=== PATIENT | male | born 2000 ===

== ENCOUNTER 2022-05-17 22:14 | Emergency (ER) | payer MEDICAID ==
[2022-05-18 13:06] LABS: Basophils % (Auto) 0.6 % (0.0-1.8); Eosinophils # (Auto) 0.2 K/mm3 (0.0-0.4); Eosinophils % (Auto) 2.6 % (0.0-4.3); Hematocrit 40.7 % (35.5-45.6); Hemoglobin 13.8 gm/dl (11.8-15.2); Lymphocytes # (Auto) 2.6 K/mm3 (1.2-5.4); Lymphocytes % (Auto) 40.8 % (13.4-35.0); Mean Corpuscular HGB Conc 34 % (32-34); Mean Corpuscular Volume 95 fl (84-94); Monocytes # (Auto) 0.7 K/mm3 (0.0-0.8); Monocytes % (Auto) 11.1 % (0.0-7.3); Platelet Count 158 K/mm3 (140-440); Red Blood Count 4.29 M/mm3 (3.65-5.03); Red Cell Distribution Width 14.4 % (13.2-15.2)
[2022-05-18 13:14] LABS: Benzodiazepines Screen,Urine Negative; Cocaine Screen,Urine Negative; Methadone Screen,Urine Negative; Opiate Screen,Urine Negative
[2022-05-18 13:22] LABS: Blood Urea Nitrogen 5 mg/dL (9-20); Calcium 9.7 mg/dL (8.4-10.2); Hemolysis Index 4
[2022-05-18 13:28] LABS: BUN/Creatinine Ratio 7
[2022-05-18 13:30] LABS: Amphetamine Screen,Urine Positive; Cannabinoid Screen,Urine Positive
--- NOTE | 2022-05-18 13:31 | Emergency Department Report ---
<VINICIUS BRUMFIELD - Last Filed: 05/18/22 16:30> ED Psych HPI - General Chief Complaint: Psych Stated Complaint: EMMANUEL SWJUDD THROUGH HEAD AND NO TONGUE Time Seen by Provider: 05/18/22 12:22 - Related Data Allergies Allergy/AdvReac Type Severity Reaction Status Date / Time No Known Allergies Allergy Unverified 05/17/22 22:56 ED Course - Reevaluation(s) Reevaluation #1: 05/18/22 16:30 This is a 21-year-old male who presented with delusions, who is now been placed on a 1013 for acute psychosis. Patient has been medically cleared for psychiatric disposition. ED Medical Decision Making - Lab Data Result diagrams: 05/18/22 12:29 05/18/22 12:29 ED Disposition Clinical Impression: Delusional disorder, Psychosis, Medical clearance for psychiatric admission, Amphetamine abuse Disposition: 30 STILL A PATIENT Is pt being admited?: No Condition: Stable <GWYN CHU - Last Filed: 05/19/22 07:58> ED Psych HPI - General Source: patient, EMS Mode of arrival: Ambulatory Limitations: No Limitations - History of Present Illness Initial Comments: 21 yo old male with hx of schizophrenia presents to the hospital with psychosis. Pt is not currently taking any psychiatric medications. He does have a place to live. He denies suicidal homicidal ideation. Patient states he has a noticeable sword in his head and that he has a tongue similar to her female c aused by black magic. He denies any pain. ED Review of Systems ROS: Stated complaint: EMMANUEL MIRAMONTES THROUGH HEAD AND NO TONGUE Other details as noted in HPI Comment: All other systems reviewed and negative ED Past Medical Hx - Past Medical History Hx Psychiatric Treatment: Yes - Social History Smoking Status: Never Smoker ED Physical Exam - General Limitations: No Limitations - Other Other exam information: General: No acute distress Head: Atraumatic Eyes: normal appearance ENT: Moist mucous membranes Neck: Normal appearance, no midline tenderness Chest: Clear to auscultation bilaterally CV: Regular rate and rhythm Abdomen: Soft, normal bowel sounds, nontender, nondistended, no rebound or guarding Back: Normal inspection Extremity: Normal inspection, full range of motion Neuro: Alert O x 3, no facial asymmetry, speech clear, no gross motor sensory deficit Psych: Appropriate behavior, hallucinations plus delusions Skin: No rash ED Course Vital Signs 05/17/22 05/18/22 05/18/22 22:54 13:19 20:11 Temperature 97.8 F 98.6 F 98.4 F Pulse Rate 91 H 59 L 58 L Respiratory 16 14 16 Rate Blood Pressure 145/82 125/61 106/67 [Right] O2 Sat by Pulse 98 98 98 Oximetry 05/19/22 02:47 Temperature 98.0 F Pulse Rate 54 L Respiratory 16 Rate Blood Pressure 120/67 [Right] O2 Sat by Pulse 99 Oximetry ED Medical Decision Making - Lab Data Result diagrams: 05/18/22 12:29 05/18/22 12:29 Lab Results 05/18/22 05/18/22 05/18/22 Range/Units 12:29 12:29 12:29 WBC (4.5-11.0) K/mm3 RBC (3.65-5.03) M/mm3 Hgb (11.8-15.2) gm/dl Hct (35.5-45.6) % MCV (84-94) fl MCH (28-32) pg MCHC (32-34) % RDW (13.2-15.2) % Plt Count (140-440) K/mm3 Lymph % (Auto) (13.4-35.0) % [place] % (Auto) (0.0-7.3) % Eos % (Auto) (0.0-4.3) % Baso % (Auto) (0.0-1.8) % Lymph # (Auto) (1.2-5.4) K/mm3 [place] # (Auto) (0.0-0.8) K/mm3 Eos # (Auto) (0.0-0.4) K/mm3 Baso # (Auto) (0.0-0.1) K/mm3 Seg Neutrophils % (40.0-70.0) % Seg Neutrophils # (1.8-7.7) K/mm3 Sodium 139 (137-145) mmol/L Potassium 4.0 (3.6-5.0) mmol/L Chloride 102.6 (98-107) mmol/L Carbon Dioxide 26 (22-30) mmol/L Anion Gap 14 mmol/L BUN 5 L (9-20) mg/dL Creatinine 0.7 L (0.8-1.3) mg/dL Estimated GFR > 60 ml/min BUN/Creatinine Ratio 7 % Glucose 82 (75-100) mg/dL Calcium 9.7 (8.4-10.2) mg/dL Urine Color (Yellow) Urine Turbidity (Clear) Urine pH (5.0-7.0) Ur Specific [place] (1.003-1.030) Urine Protein (Negative) mg/dL Urine Glucose (UA) (Negative) mg/dL Urine Ketones (Negative) mg/dL Urine Blood (Negative) Urine Nitrite (Negative) Ur Reducing Substances Urine Bilirubin (Negative) Urine Ictotest (Negative) Urine Urobilinogen (<2.0) mg/dL Ur Leukocyte Esterase (Negative) Urine WBC (Auto) (0.0-6.0) /HPF Urine RBC (Auto) (0.0-6.0) /HPF U Epithel Cells (Auto) (0-13.0) /HPF Urine Mucus /HPF Salicylates < 0.3 L (2.8-20.0) mg/dL Urine Opiates Screen Urine Methadone Screen Acetaminophen 5.0 L (10.0-30.0) ug/mL Ur Barbiturates Screen Ur Phencyclidine Scrn Ur Amphetamines Screen U Benzodiazepines Scrn Urine Cocaine Screen U Marijuana (THC) Screen Drugs of Abuse Note Plasma/Serum Alcohol (0-0.07) % 05/18/22 05/18/22 05/18/22 Range/Units 12:29 12:29 Unknown WBC 6.5 (4.5-11.0) K/mm3 RBC 4.29 (3.65-5.03) M/mm3 Hgb 13.8 (11.8-15.2) gm/dl Hct 40.7 (35.5-45.6) % MCV 95 H (84-94) fl MCH 32 (28-32) pg MCHC 34 (32-34) % RDW 14.4 (13.2-15.2) % Plt Count 158 (140-440) K/mm3 Lymph % (Auto) 40.8 H (13.4-35.0) % [place] % (Auto) 11.1 H (0.0-7.3) % Eos % (Auto) 2.6 (0.0-4.3) % Baso % (Auto) 0.6 (0.0-1.8) % Lymph # (Auto) 2.6 (1.2-5.4) K/mm3 [place] # (Auto) 0.7 (0.0-0.8) K/mm3 Eos # (Auto) 0.2 (0.0-0.4) K/mm3 Baso # (Auto) 0.0 (0.0-0.1) K/mm3 Seg Neutrophils % 44.9 (40.0-70.0) % Seg Neutrophils # 2.9 (1.8-7.7) K/mm3 Sodium (137-145) mmol/L Potassium (3.6-5.0) mmol/L Chloride (98-107) mmol/L Carbon Dioxide (22-30) mmol/L Anion Gap mmol/L BUN (9-20) mg/dL Creatinine (0.8-1.3) mg/dL Estimated GFR ml/min BUN/Creatinine Ratio % Glucose (75-100) mg/dL Calcium (8.4-10.2) mg/dL Urine Color Yellow (Yellow) Urine Turbidity Clear (Clear) Urine pH 6.0 (5.0-7.0) Ur Specific [place] 1.020 (1.003-1.030) Urine Protein <15 mg/dl (Negative) mg/dL Urine Glucose (UA) Negative (Negative) mg/dL Urine Ketones 1+ (Negative) mg/dL Urine Blood Negative (Negative) Urine Nitrite Negative (Negative) Ur Reducing Substances Not Reportable Urine Bilirubin 1+ (Negative) Urine Ictotest Negative (Negative) Urine Urobilinogen 0.0 (<2.0) mg/dL Ur Leukocyte Esterase Negative (Negative) Urine WBC (Auto) < 1.0 (0.0-6.0) /HPF Urine RBC (Auto) 1.0 (0.0-6.0) /HPF U Epithel Cells (Auto) 1.0 (0-13.0) /HPF Urine Mucus 1+ /HPF Salicylates (2.8-20.0) mg/dL Urine Opiates Screen Urine Methadone Screen Acetaminophen (10.0-30.0) ug/mL Ur Barbiturates Screen Ur Phencyclidine Scrn Ur Amphetamines Screen U Benzodiazepines Scrn Urine Cocaine Screen U Marijuana (THC) Screen Drugs of Abuse Note Plasma/Serum Alcohol < 0.01 (0-0.07) % 08/09/22 Range/Units Unknown WBC (4.5-11.0) K/mm3 RBC (3.65-5.03) M/mm3 Hgb (11.8-15.2) gm/dl Hct (35.5-45.6) % MCV (84-94) fl MCH (28-32) pg MCHC (32-34) % RDW (13.2-15.2) % Plt Count (140-440) K/mm3 Lymph % (Auto) (13.4-35.0) % [place] % (Auto) (0.0-7.3) % Eos % (Auto) (0.0-4.3) % Baso % (Auto) (0.0-1.8) % Lymph # (Auto) (1.2-5.4) K/mm3 [place] # (Auto) (0.0-0.8) K/mm3 Eos # (Auto) (0.0-0.4) K/mm3 Baso # (Auto) (0.0-0.1) K/mm3 Seg Neutrophils % (40.0-70.0) % Seg Neutrophils # (1.8-7.7) K/mm3 Sodium (137-145) mmol/L Potassium (3.6-5.0) mmol/L Chloride (98-107) mmol/L Carbon Dioxide (22-30) mmol/L Anion Gap mmol/L BUN (9-20) mg/dL Creatinine (0.8-1.3) mg/dL Estimated GFR ml/min BUN/Creatinine Ratio % Glucose (75-100) mg/dL Calcium (8.4-10.2) mg/dL Urine Color (Yellow) Urine Turbidity (Clear) Urine pH (5.0-7.0) Ur Specific [place] (1.003-1.030) Urine Protein (Negative) mg/dL Urine Glucose (UA) (Negative) mg/dL Urine Ketones (Negative) mg/dL Urine Blood (Negative) Urine Nitrite (Negative) Ur Reducing Substances Urine Bilirubin (Negative) Urine Ictotest (Negative) Urine Urobilinogen (<2.0) mg/dL Ur Leukocyte Esterase (Negative) Urine WBC (Auto) (0.0-6.0) /HPF Urine RBC (Auto) (0.0-6.0) /HPF U Epithel Cells (Auto) (0-13.0) /HPF Urine Mucus /HPF Salicylates (2.8-20.0) mg/dL Urine Opiates Screen Negative Urine Methadone Screen Negative Acetaminophen (10.0-30.0) ug/mL Ur Barbiturates Screen Negative Ur Phencyclidine Scrn Negative Ur Amphetamines Screen Positive U Benzodiazepines Scrn Negative Urine Cocaine Screen Negative U Marijuana (THC) Screen Positive Drugs of Abuse Note Disclamer Plasma/Serum Alcohol (0-0.07) % - Medical Decision Making I did request eval for evaluation. Patient is experiencing psychosis and delusions with underlying psychiatric disorder, med noncompliance, and amphetamine abuse. As per medical record review 1013 was recommended due to psychosis. Patient is medically clear Critical care attestation.: If time is entered above; I have spent that time in minutes in the direct care of this critically ill patient, excluding procedure time. ED Disposition Time of Disposition: 07:58
[2022-05-18 15:09] LABS: Mucus,Urine 1+ /HPF; WBC,Urine < 1.0 /HPF (0.0-6.0)
[2022-05-18 15:32] LABS: Bilirubin,Urine 1+ (Negative); Blood,Urine Negative (Negative); Color,Urine Yellow (Yellow)
[2022-05-18 15:33] LABS: Ictotest,Urine Negative (Negative); Protein,Urine <15 mg/dL mg/dL (Negative)
--- NOTE | 2022-05-19 11:13 | Consultation ---
History of Present Illness - Reason for Consult Consult date: 05/19/22 Reason for consult: Psychosis - History of Present Psychiatric Illness The patient was seen today. He presents with disorganized thinking " Visible sword and black magic, they asked these questions." The patient is unable to engage in assessment at this time. Diagnoses: schizophrenia PAST MEDICAL HISTORY: Family Psychiatric History: None reported or documented SOCIAL HISTORY REVIEW OF SYSTEMS MENTAL STATUS EXAMINATION Assessment and Plan Schizophrenia Disorder Treatment Plan 1013 Continue home Meds Zyprexa 5mg po BID Trazodone 50mg po QHS Risks, benefits and alternatives of medications discussed with the patient, questions answered and consent obtained from patient. PSYCHOTHERAPY: Supportive psychotherapy provided MEDICAL: Per primary team DELIRIUM PRECAUTIONS: Please re-orient patient frequently, keep lights on during the day, and minimize benzodiazepines and opiates as these medications could worsen patient's confusion. 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 Will follow. Thank you for the consult. Please contact with any questions and/or concerns. Case staffed with Dr. Rosenthal Medications and Allergies Medications and Allergies Allergies Allergy/AdvReac Type Severity Reaction Status Date / Time No Known Allergies Allergy Unverified 05/17/22 22:56 Mental Status Exam - Vital signs Last Vital Signs Temp 97.9 F 05/19/22 08:46 Pulse 55 L 05/19/22 08:46 Resp 18 05/19/22 08:46 BP 118/72 05/19/22 08:46 Pulse Ox 99 05/19/22 08:46 Results Result Diagrams: 05/18/22 12:29 05/18/22 12:29 Abnormal lab results 05/18/22 05/18/22 05/18/22 Range/Units 12:29 12:29 12:29 MCV (84-94) fl Lymph % (Auto) (13.4-35.0) % [place] % (Auto) (0.0-7.3) % BUN 5 L (9-20) mg/dL Creatinine 0.7 L (0.8-1.3) mg/dL Salicylates < 0.3 L (2.8-20.0) mg/dL Acetaminophen 5.0 L (10.0-30.0) ug/mL SARS-CoV-2 (PCR) (Negative) 05/18/22 05/19/22 Range/Units 12:29 10:02 MCV 95 H (84-94) fl Lymph % (Auto) 40.8 H (13.4-35.0) % [place] % (Auto) 11.1 H (0.0-7.3) % BUN (9-20) mg/dL Creatinine (0.8-1.3) mg/dL Salicylates (2.8-20.0) mg/dL Acetaminophen (10.0-30.0) ug/mL SARS-CoV-2 (PCR) Positive A (Negative) All other labs normal.
--- NOTE | 2022-05-20 09:54 | Progress Note ---
Subjective - Reason for Consult Consult date: 05/20/22 Reason for consult: mental health evaluation - Chief Complaint Chief complaint: The patient was seen this morning. He continues to present with disorganized thinking talking about " black majic." REVIEW OF SYSTEMS MENTAL STATUS EXAMINATION Assessment and Plan Schizophrenia Disorder Treatment Plan 1013 Continue home Meds Zyprexa 5mg po BID Trazodone 50mg po QHS Risks, benefits and alternatives of medications discussed with the patient, questions answered and consent obtained from patient. PSYCHOTHERAPY: Supportive psychotherapy provided MEDICAL: Per primary team DELIRIUM PRECAUTIONS: Please re-orient patient frequently, keep lights on during the day, and minimize benzodiazepines and opiates as these medications could worsen patient's confusion. 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 Will follow. Thank you for the consult. Please contact with any questions and/or concerns. Case staffed with Dr. Rosenthal Medications and Allergies Mental Status Exam - Vital signs Last Vital Signs Temp 98.6 F 05/20/22 09:18 Pulse 80 05/20/22 09:18 Resp 18 05/20/22 09:18 BP 111/50 05/20/22 09:18 Pulse Ox 100 05/20/22 09:18
--- NOTE | 2022-05-20 14:29 | Emergency Department Report ---
Blank Doc - Documentation Documentation: This is a 21-year-old male who is on a 1013 for acute psychosis with hallucina tions that he has a sword and has had. Patient has been agitated, recently, but has Geodon ordered as needed. Patient is also COVID-19 positive. Patient is awaiting negative COVID testing and to be accepted and transferred to inpatient psychiatric facility.
--- NOTE | 2022-05-21 12:05 | Progress Note ---
Subjective - Reason for Consult Consult date: 05/21/22 Reason for consult: psychosis - Chief Complaint Chief complaint: The patient was seen this morning. He is acutely psychotic. His thoughts are disorganized. The patient says he has an "reversible sword that's in my body." He then says "I have black magic on my tongue." The patient verbalizes hearing voices but could not tell me what they were saying. He says "it's just black magic." He denies SI/HI. REVIEW OF SYSTEMS MENTAL STATUS EXAMINATION Assessment and Plan Schizophrenia Treatment Plan 1013 Zyprexa 7.5mg po daily Trazodone 50mg po QHS Risks, benefits and alternatives of medications discussed with the patient, questions answered and consent obtained from patient. PSYCHOTHERAPY: Supportive psychotherapy provided MEDICAL: Per primary team DELIRIUM PRECAUTIONS: Please re-orient patient frequently, keep lights on during the day, and minimize benzodiazepines and opiates as these medications could worsen patient's confusion. 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 Will follow. Thank you for the consult. Please contact with any questions and/or concerns. Case staffed with Dr. Rosenthal Mental Status Exam - Vital signs Last Vital Signs Temp 98.7 F 05/21/22 08:49 Pulse 63 05/21/22 08:49 Resp 18 05/21/22 08:49 BP 106/54 05/21/22 08:49 Pulse Ox 96 05/21/22 09:26
[2022-05-21] MEDS ORDERED: LORazepam 2 MG/ML VIAL IM PRN (17:57)
[2022-05-21] MEDS ORDERED: HALOPERIDOL LACTATE 5 MG/1 ML INJ IM PRN (17:57)
--- NOTE | 2022-05-21 17:59 | Event Note ---
Date: 05/21/22 The patient was evaluated in the emergency department for symptoms described in the history of present illness. He/she was evaluated in the context of the global COVID-19 pandemic, which necessitated consideration that the patient might be at risk for infection with the virus that causes COVID-19. Institutional protocols and algorithms that pertain to the evaluation of patients at risk for COVID-19 are in a state of rapid change based on information released by regulatory bodies including the CDC and federal and state organizations. These policies and algorithms were followed during the patient's care in the emergency department. Please note that these policies, procedures and recommendations changed on a rapid basis. Laboratory studies, vital signs, nursing documentation, ER documentation, and psychiatric documentation are reviewed and appreciated. Nursing team reports no acute events this morning or concerns. The patient is awake and ambulating and is not in any acute distress. He is requesting a nicotine patch He is not hypoxic. Positive COVID-19 swab is not a medical contraindication to psychiatric placement and disposition The patient was deemed medically suitable for psychiatric disposition and placement during his initial ER evaluation. The patient continues to remain medically suitable for psychiatric placement and disposition. He is currently pending psychiatric placement. Vital Signs 05/17/22 05/18/22 05/18/22 22:54 13:19 20:11 Temperature 97.8 F 98.6 F 98.4 F Pulse Rate 91 H 59 L 58 L Respiratory 16 14 16 Rate Blood Pressure 145/82 125/61 106/67 [Right] O2 Sat by Pulse 98 98 98 Oximetry 05/19/22 05/19/22 05/19/22 02:47 08:46 19:36 Temperature 98.0 F 97.9 F 97.8 F Pulse Rate 54 L 55 L 59 L Respiratory 16 18 18 Rate Blood Pressure 120/67 118/72 120/79 [Right] O2 Sat by Pulse 99 99 99 Oximetry 05/20/22 05/20/22 05/20/22 08:57 09:18 17:28 Temperature 98.6 F 99 F Pulse Rate 80 50 L Respiratory 18 18 Rate Blood Pressure 111/50 106/54 [Right] O2 Sat by Pulse 99 100 97 Oximetry 05/20/22 05/21/22 05/21/22 22:17 08:49 09:26 Temperature 98.7 F Pulse Rate 63 Respiratory 18 Rate Blood Pressure 106/54 [Right] O2 Sat by Pulse 100 96 96 Oximetry 05/21/22 17:24 Temperature 98.6 F Pulse Rate 73 Respiratory 18 Rate Blood Pressure 123/76 [Right] O2 Sat by Pulse 95 Oximetry
[2022-05-22] MEDS: NICOTINE 14 MG/24 HR PATCH TD SCH ×2 (00:10→12:07)
[2022-05-22] MEDS: traZODone 50 MG TAB PO SCH ×2 (00:10→22:45)
--- NOTE | 2022-05-22 09:37 | Progress Note ---
Subjective - Reason for Consult Consult date: 05/22/22 Reason for consult: psychosis - Chief Complaint Chief complaint: The patient was seen this morning. He is still delusional and psychotic. He is not making a lot of sense. He is asking me if he still has a female tongue. He sticks his tongue out for me to look. The patient says he has black magic on his tongue. He denies hearing voices at the moment, but says he was hearing them before. The patient says "I hear them when I have the sword in my head." He denies SI/HI. REVIEW OF SYSTEMS Constitutional: Negative for weight loss ENT: Negative for stridor Respiratory: Negative for cough or hemoptysis All other systems reviewed and are negative MENTAL STATUS EXAMINATION General Appearance and Behavior: Age appropriate, good hygiene, wearing dorian ropriate clothes. calm, cooperative Cooperation: Cooperative Psychomotor Behavior: Psychomotor normal Mood: ok Affect and affective range: congruent with stated mood Thought Process: illogical Thought Content: delusions, hallucination Speech: Normal tone and pace Suicidal Ideation: Denies Homicidal Ideation: Denies Hallucinations: Yes Delusions: Yes Impulse Control: Limited Insight and Judgment: poor insight and judgment Memory: Limited Attention: distracted Orientation: a/o Assessment and Plan Schizophrenia Treatment Plan 1013 Increase Zyprexa 10mg po daily Depakote DR 125mg po BID Trazodone 50mg po QHS Risks, benefits and alternatives of medications discussed with the patient, questions answered and consent obtained from patient. PSYCHOTHERAPY: Supportive psychotherapy provided MEDICAL: Per primary team DELIRIUM PRECAUTIONS: Please re-orient patient frequently, keep lights on during the day, and minimize benzodiazepines and opiates as these medications could worsen patient's confusion. 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 Will follow. Thank you for the consult. Please contact with any questions and/or concerns. Case staffed with Dr. Rosenthal Mental Status Exam - Vital signs Last Vital Signs Temp 98.0 F 05/21/22 21:20 Pulse 58 L 05/21/22 21:20 Resp 16 05/21/22 21:20 BP 103/60 05/21/22 21:20 Pulse Ox 100 05/21/22 21:20
[2022-05-22] MEDS: DIVALPROEX DR 125 MG TAB PO SCH ×2 (10:11→22:45)
--- NOTE | 2022-05-22 17:15 | Event Note ---
Date: 05/22/22 The patient was evaluated in the emergency department for symptoms described in the history of present illness. He/she was evaluated in the context of the global COVID-19 pandemic, which necessitated consideration that the patient might be at risk for infection with the virus that causes COVID-19. Institutional protocols and algorithms that pertain to the evaluation of patients at risk for COVID-19 are in a state of rapid change based on information released by regulatory bodies including the CDC and federal and state organizations. These policies and algorithms were followed during the patient's care in the emergency department. Please note that these policies, procedures and recommendations changed on a rapid basis. Laboratory studies, vital signs, nursing documentation, ER documentation, and psychiatric documentation are reviewed and appreciated. Nursing team reports no acute events this morning or concerns. The patient is awake and ambulating and does not appear to be in any acute distress. The patient was deemed medically suitable for psychiatric disposition and placement during his initial ER evaluation. The patient continues to remain medically suitable for psychiatric placement and disposition. He is currently pending psychiatric placement. Please note that in spite of having a positive COVID-19 test, the patient does not have a medical contraindication to psychiatric placement, consultation and disposition. Vital Signs 05/17/22 05/18/22 05/18/22 22:54 13:19 20:11 Temperature 97.8 F 98.6 F 98.4 F Pulse Rate 91 H 59 L 58 L Respiratory 16 14 16 Rate Blood Pressure 145/82 125/61 106/67 [Right] O2 Sat by Pulse 98 98 98 Oximetry 05/19/22 05/19/22 05/19/22 02:47 08:46 19:36 Temperature 98.0 F 97.9 F 97.8 F Pulse Rate 54 L 55 L 59 L Respiratory 16 18 18 Rate Blood Pressure 120/67 118/72 120/79 [Right] O2 Sat by Pulse 99 99 99 Oximetry 05/20/22 05/20/22 05/20/22 08:57 09:18 17:28 Temperature 98.6 F 99 F Pulse Rate 80 50 L Respiratory 18 18 Rate Blood Pressure 111/50 106/54 [Right] O2 Sat by Pulse 99 100 97 Oximetry 05/20/22 05/21/22 05/21/22 22:17 08:49 09:26 Temperature 98.7 F Pulse Rate 63 Respiratory 18 Rate Blood Pressure 106/54 [Right] O2 Sat by Pulse 100 96 96 Oximetry 05/21/22 05/21/22 05/22/22 17:24 21:20 10:38 Temperature 98.6 F 98.0 F 99.0 F Pulse Rate 73 58 L 56 L Respiratory 18 16 18 Rate Blood Pressure 123/76 103/60 105/65 [Right] O2 Sat by Pulse 95 100 100 Oximetry 05/22/22 10:39 Temperature Pulse Rate Respiratory Rate Blood Pressure [Right] O2 Sat by Pulse 100 Oximetry
--- NOTE | 2022-05-23 09:47 | Progress Note ---
Subjective - Reason for Consult Consult date: 05/23/22 Reason for consult: psychosis - Chief Complaint Chief complaint: The patient was seen this morning. He is seen pacing around in a squaxin and talking loudly to himself. The patient says he needs medicine to remove the invisible sword that's in his head. He says "the police know about it. They have one too. They can tell when you are lying." He is speaking about black magic and performing it. He denies SI/HI. REVIEW OF SYSTEMS Constitutional: Negative for weight loss ENT: Negative for stridor Respiratory: Negative for cough or hemoptysis All other systems reviewed and are negative MENTAL STATUS EXAMINATION General Appearance and Behavior: Age appropriate, good hygiene, wearing appropriate clothes. calm, cooperative Cooperation: Cooperative Psychomotor Behavior: Psychomotor normal Mood: ok Affect and affective range: congruent with stated mood Thought Process: illogical Thought Content: delusions, hallucination Speech: Normal tone and pace Suicidal Ideation: Denies Homicidal Ideation: Denies Hallucinations: Yes Delusions: Yes Impulse Control: Limited Insight and Judgment: poor insight and judgment Memory: Limited Attention: distracted Orientation: a/o Assessment and Plan Schizophrenia Treatment Plan 1013 Haldol Dec 50mg IM x one Increase Zyprexa 15mg po daily Depakote DR 125mg po BID Trazodone 50mg po QHS Risks, benefits and alternatives of medications discussed with the patient, questions answered and consent obtained from patient. PSYCHOTHERAPY: Supportive psychotherapy provided MEDICAL: Per primary team DELIRIUM PRECAUTIONS: Please re-orient patient frequently, keep lights on during the day, and minimize benzodiazepines and opiates as these medications could w orsen patient's confusion. 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 Will follow. Thank you for the consult. Please contact with any questions and/or concerns. Case staffed with Dr. Rosenthal Mental Status Exam - Vital signs Last Vital Signs Temp 97.9 F 05/22/22 22:23 Pulse 55 L 05/22/22 22:23 Resp 16 05/22/22 22:23 BP 94/57 05/22/22 22:23 Pulse Ox 100 05/22/22 22:23
[2022-05-23] MEDS ORDERED: HALOPERIDOL DECANOATE 100 MG/1 ML INJ IM SCH (10:30)
[2022-05-23] MEDS: DIVALPROEX DR 125 MG TAB PO SCH ×2 (11:27→22:10)
[2022-05-23] MEDS: NICOTINE 14 MG/24 HR PATCH TD SCH (11:27)
--- NOTE | 2022-05-23 12:37 | Event Note ---
Date: 05/23/22 The patient was evaluated in the emergency department for symptoms described in the history of present illness. He/she was evaluated in the context of the global COVID-19 pandemic, which necessitated consideration that the patient might be at risk for infection with the virus that causes COVID-19. Institutional protocols and algorithms that pertain to the evaluation of patients at risk for COVID-19 are in a state of rapid change based on information released by regulatory bodies including the CDC and federal and state organizations. These policies and algorithms were followed during the patient's care in the emergency department. Please note that these policies, procedures and recommendations changed on a rapid basis. Laboratory studies, vital signs, nursing documentation, ER documentation, and psychiatric documentation are reviewed and appreciated. Nursing team reports no acute events this morning or concerns. The patient is awake and ambulating and does not appear to be in any acute distress. He still appears to be psychotic. The patient was deemed medically suitable for psychiatric disposition and placement during his initial ER evaluation. The patient continues to remain medically suitable for psychiatric placement and disposition. He is currently pending psychiatric placement. Vital Signs 05/17/22 05/18/22 05/18/22 22:54 13:19 20:11 Temperature 97.8 F 98.6 F 98.4 F Pulse Rate 91 H 59 L 58 L Respiratory 16 14 16 Rate Blood Pressure 145/82 125/61 106/67 [Right] O2 Sat by Pulse 98 98 98 Oximetry 05/19/22 05/19/22 05/19/22 02:47 08:46 19:36 Temperature 98.0 F 97.9 F 97.8 F Pulse Rate 54 L 55 L 59 L Respiratory 16 18 18 Rate Blood Pressure 120/67 118/72 120/79 [Right] O2 Sat by Pulse 99 99 99 Oximetry 05/20/22 05/20/22 05/20/22 08:57 09:18 17:28 Temperature 98.6 F 99 F Pulse Rate 80 50 L Respiratory 18 18 Rate Blood Pressure 111/50 106/54 [Right] O2 Sat by Pulse 99 100 97 Oximetry 05/20/22 05/21/22 05/21/22 22:17 08:49 09:26 Temperature 98.7 F Pulse Rate 63 Respiratory 18 Rate Blood Pressure 106/54 [Right] O2 Sat by Pulse 100 96 96 Oximetry 05/21/22 05/21/22 05/22/22 17:24 21:20 10:38 Temperature 98.6 F 98.0 F 99.0 F Pulse Rate 73 58 L 56 L Respiratory 18 16 18 Rate Blood Pressure 123/76 103/60 105/65 [Right] O2 Sat by Pulse 95 100 100 Oximetry 05/22/22 05/22/22 10:39 22:23 Temperature 97.9 F Pulse Rate 55 L Respiratory 16 Rate Blood Pressure 94/57 [Right] O2 Sat by Pulse 100 100 Oximetry Lab Results 05/18/22 05/18/22 05/18/22 Range/Units 12:29 12:29 12:29 WBC (4.5-11.0) K/mm3 RBC (3.65-5.03) M/mm3 Hgb (11.8-15.2) gm/dl Hct (35.5-45.6) % MCV (84-94) fl MCH (28-32) pg MCHC (32-34) % RDW (13.2-15.2) % Plt Count (140-440) K/mm3 Lymph % (Auto) (13.4-35.0) % Reeves % (Auto) (0.0-7.3) % Eos % (Auto) (0.0-4.3) % Baso % (Auto) (0.0-1.8) % Lymph # (Auto) (1.2-5.4) K/mm3 Reeves # (Auto) (0.0-0.8) K/mm3 Eos # (Auto) (0.0-0.4) K/mm3 Baso # (Auto) (0.0-0.1) K/mm3 Seg Neutrophils % (40.0-70.0) % Seg Neutrophils # (1.8-7.7) K/mm3 Sodium 139 (137-145) mmol/L Potassium 4.0 (3.6-5.0) mmol/L Chloride 102.6 (98-107) mmol/L Carbon Dioxide 26 (22-30) mmol/L Anion Gap 14 mmol/L BUN 5 L (9-20) mg/dL Creatinine 0.7 L (0.8-1.3) mg/dL Estimated GFR > 60 ml/min BUN/Creatinine Ratio 7 % Glucose 82 (75-100) mg/dL Calcium 9.7 (8.4-10.2) mg/dL Urine Color (Yellow) Urine Turbidity (Clear) Urine pH (5.0-7.0) Ur Specific [place] (1.003-1.030) Urine Protein (Negative) mg/dL Urine Glucose (UA) (Negative) mg/dL Urine Ketones (Negative) mg/dL Urine Blood (Negative) Urine Nitrite (Negative) Ur Reducing Substances Urine Bilirubin (Negative) Urine Ictotest (Negative) Urine Urobilinogen (<2.0) mg/dL Ur Leukocyte Esterase (Negative) Urine WBC (Auto) (0.0-6.0) /HPF Urine RBC (Auto) (0.0-6.0) /HPF U Epithel Cells (Auto) (0-13.0) /HPF Urine Mucus /HPF Salicylates < 0.3 L (2.8-20.0) mg/dL Urine Opiates Screen Urine Methadone Screen Acetaminophen 5.0 L (10.0-30.0) ug/mL Ur Barbiturates Screen Ur Phencyclidine Scrn Ur Amphetamines Screen U Benzodiazepines Scrn Urine Cocaine Screen U Marijuana (THC) Screen Drugs of Abuse Note Plasma/Serum Alcohol (0-0.07) % SARS-CoV-2 (PCR) (Negative) 05/18/22 05/18/22 05/18/22 Range/Units 12:29 12:29 Unknown WBC 6.5 (4.5-11.0) K/mm3 RBC 4.29 (3.65-5.03) M/mm3 Hgb 13.8 (11.8-15.2) gm/dl Hct 40.7 (35.5-45.6) % MCV 95 H (84-94) fl MCH 32 (28-32) pg MCHC 34 (32-34) % RDW 14.4 (13.2-15.2) % Plt Count 158 (140-440) K/mm3 Lymph % (Auto) 40.8 H (13.4-35.0) % Reeves % (Auto) 11.1 H (0.0-7.3) % Eos % (Auto) 2.6 (0.0-4.3) % Baso % (Auto) 0.6 (0.0-1.8) % Lymph # (Auto) 2.6 (1.2-5.4) K/mm3 Reeves # (Auto) 0.7 (0.0-0.8) K/mm3 Eos # (Auto) 0.2 (0.0-0.4) K/mm3 Baso # (Auto) 0.0 (0.0-0.1) K/mm3 Seg Neutrophils % 44.9 (40.0-70.0) % Seg Neutrophils # 2.9 (1.8-7.7) K/mm3 Sodium (137-145) mmol/L Potassium (3.6-5.0) mmol/L Chloride (98-107) mmol/L Carbon Dioxide (22-30) mmol/L Anion Gap mmol/L BUN (9-20) mg/dL Creatinine (0.8-1.3) mg/dL Estimated GFR ml/min BUN/Creatinine Ratio % Glucose (75-100) mg/dL Calcium (8.4-10.2) mg/dL Urine Color Yellow (Yellow) Urine Turbidity Clear (Clear) Urine pH 6.0 (5.0-7.0) Ur Specific [place] 1.020 (1.003-1.030) Urine Protein <15 mg/dl (Negative) mg/dL Urine Glucose (UA) Negative (Negative) mg/dL Urine Ketones 1+ (Negative) mg/dL Urine Blood Negative (Negative) Urine Nitrite Negative (Negative) Ur Reducing Substances Not Reportable Urine Bilirubin 1+ (Negative) Urine Ictotest Negative (Negative) Urine Urobilinogen 0.0 (<2.0) mg/dL Ur Leukocyte Esterase Negative (Negative) Urine WBC (Auto) < 1.0 (0.0-6.0) /HPF Urine RBC (Auto) 1.0 (0.0-6.0) /HPF U Epithel Cells (Auto) 1.0 (0-13.0) /HPF Urine Mucus 1+ /HPF Salicylates (2.8-20.0) mg/dL Urine Opiates Screen Urine Methadone Screen Acetaminophen (10.0-30.0) ug/mL Ur Barbiturates Screen Ur Phencyclidine Scrn Ur Amphetamines Screen U Benzodiazepines Scrn Urine Cocaine Screen U Marijuana (THC) Screen Drugs of Abuse Note Plasma/Serum Alcohol < 0.01 (0-0.07) % SARS-CoV-2 (PCR) (Negative) 05/18/22 05/19/22 Range/Units Unknown 10:02 WBC (4.5-11.0) K/mm3 RBC (3.65-5.03) M/mm3 Hgb (11.8-15.2) gm/dl Hct (35.5-45.6) % MCV (84-94) fl MCH (28-32) pg MCHC (32-34) % RDW (13.2-15.2) % Plt Count (140-440) K/mm3 Lymph % (Auto) (13.4-35.0) % Reeves % (Auto) (0.0-7.3) % Eos % (Auto) (0.0-4.3) % Baso % (Auto) (0.0-1.8) % Lymph # (Auto) (1.2-5.4) K/mm3 Reeves # (Auto) (0.0-0.8) K/mm3 Eos # (Auto) (0.0-0.4) K/mm3 Baso # (Auto) (0.0-0.1) K/mm3 Seg Neutrophils % (40.0-70.0) % Seg Neutrophils # (1.8-7.7) K/mm3 Sodium (137-145) mmol/L Potassium (3.6-5.0) mmol/L Chloride (98-107) mmol/L Carbon Dioxide (22-30) mmol/L Anion Gap mmol/L BUN (9-20) mg/dL Creatinine (0.8-1.3) mg/dL Estimated GFR ml/min BUN/Creatinine Ratio % Glucose (75-100) mg/dL Calcium (8.4-10.2) mg/dL Urine Color (Yellow) Urine Turbidity (Clear) Urine pH (5.0-7.0) Ur Specific [place] (1.003-1.030) Urine Protein (Negative) mg/dL Urine Glucose (UA) (Negative) mg/dL Urine Ketones (Negative) mg/dL Urine Blood (Negative) Urine Nitrite (Negative) Ur Reducing Substances Urine Bilirubin (Negative) Urine Ictotest (Negative) Urine Urobilinogen (<2.0) mg/dL Ur Leukocyte Esterase (Negative) Urine WBC (Auto) (0.0-6.0) /HPF Urine RBC (Auto) (0.0-6.0) /HPF U Epithel Cells (Auto) (0-13.0) /HPF Urine Mucus /HPF Salicylates (2.8-20.0) mg/dL Urine Opiates Screen Negative Urine Methadone Screen Negative Acetaminophen (10.0-30.0) ug/mL Ur Barbiturates Screen Negative Ur Phencyclidine Scrn Negative Ur Amphetamines Screen Positive U Benzodiazepines Scrn Negative Urine Cocaine Screen Negative U Marijuana (THC) Screen Positive Drugs of Abuse Note Disclamer Plasma/Serum Alcohol (0-0.07) % SARS-CoV-2 (PCR) Positive A (Negative)
[2022-05-23] MEDS: traZODone 50 MG TAB PO SCH (22:10)
--- NOTE | 2022-05-24 09:54 | Progress Note ---
Subjective - Reason for Consult Consult date: 05/24/22 Reason for consult: psychosis - Chief Complaint Chief complaint: The patient was seen this morning. He endorses feeling much better after the Haldol injection he received yesterday. The patient is still a little delusional but the delusions don't appear to be harmful. The patient is a/o x 4. He is calm and cooperative. He still mentions the sword on his tongue, but states "it's leaving thought. The shot helped." The patient denies hallucinations or SI/HI. He says he [facility] in a [place], and his plan is to "keep taking my meds so I can feel good." I discussed with the patient the importance and benefit of continuing his meds and frequent outpatient visits with his psychiatrist. Will not longer recommend acute psychiatric inpatient treatment. The patient can now be managed on an outpatient basis. REVIEW OF SYSTEMS Constitutional: Negative for weight loss ENT: Negative for stridor Respiratory: Negative for cough or hemoptysis All other systems reviewed and are negative MENTAL STATUS EXAMINATION General Appearance and Behavior: Age appropriate, good hygiene, wearing appropriate clothes. calm, cooperative Cooperation: Cooperative Psychomotor Behavior: Psychomotor normal Mood: better Affect and affective range: congruent with stated mood Thought Process: circumstantial Thought Content: delusions Speech: Normal tone and pace Suicidal Ideation: Denies Homicidal Ideation: Denies Hallucinations: Denies Delusions: Yes Impulse Control: Limited Insight and Judgment: Limited insight and judgment Memory: Limited Attention: attentive Orientation: a/o Assessment and Plan Schizophrenia Treatment Plan d/c 1013 Haldol Dec 50mg IM x one given yesterday, the patient should continue it monthly on an outpatient basis Zyprexa 15mg po daily Depakote DR 125mg po BID Trazodone 50mg po QHS Risks, benefits and alternatives of medications discussed with the patient, questions answered and consent obtained from patient. PSYCHOTHERAPY: Supportive psychotherapy provided MEDICAL: Per primary team DELIRIUM PRECAUTIONS: Please re-orient patient frequently, keep lights on during the day, and minimize benzodiazepines and opiates as these medications could worsen patient's confusion. TRAINING AND DEVELOPMENT COORDINATOR: Defer to primary DISPOSITION: Do not Recommend acute inpatient psychiatric hospitalization at this time. The patient understands that if SI/HI or any fear of endangerment arise he is to seek immediate assistance. The superintendent police to give the patient all necessary outpatient resources Will sign off. Thank you for the consult. Please contact with any questions and/or concerns. Case staffed with Dr. Rosenthal Mental Status Exam - Vital signs Last Vital Signs Temp 99.9 F H 05/23/22 20:08 Pulse 45 L 05/23/22 20:08 Resp 18 05/23/22 20:08 BP 111/59 05/23/22 20:08 Pulse Ox 100 05/24/22 02:40
[2022-05-24] MEDS: DIVALPROEX DR 125 MG TAB PO SCH (10:22)
[2022-05-24] MEDS: NICOTINE 14 MG/24 HR PATCH TD SCH (10:22)
[2022-05-24 11:07] VITALS: BP 105/62
== END 2022-05-24 13:08 | disposition home or self-care (01) ==
LOC: ED 22:14 → EEVIPCON 22:14 → ED 05-24 13:08
DX: U07.1 COVID-19 (principal); Z04.6 Encounter for general psychiatric examination, requested by authority; F22 Delusional disorders; F15.10 Other stimulant abuse, uncomplicated; Z79.899 Other long term (current) drug therapy
CPT/HCPCS: 36415; 80048; 80307; 81001; 85025; 96372; 99284; J1631; U0003; 80320; G0480

== ENCOUNTER 2022-06-17 19:12 | Emergency (ER) | payer MEDICAID ==
[2022-06-17 21:33] LABS: Basophils % (Auto) 0.6 % (0.0-1.8); Eosinophils # (Auto) 0.2 K/mm3 (0.0-0.4); Eosinophils % (Auto) 2.7 % (0.0-4.3); Hematocrit 37.3 % (35.5-45.6); Hemoglobin 13.1 gm/dl (11.8-15.2); Lymphocytes # (Auto) 2.7 K/mm3 (1.2-5.4); Mean Corpuscular HGB Conc 35 % (32-34); Mean Corpuscular Volume 95 fl (84-94); Monocytes # (Auto) 0.7 K/mm3 (0.0-0.8); Platelet Count 183 K/mm3 (140-440); Red Blood Count 3.94 M/mm3 (3.65-5.03); Red Cell Distribution Width 14.7 % (13.2-15.2)
[2022-06-17 21:43] LABS: BUN/Creatinine Ratio 8; Blood Urea Nitrogen 6 mg/dL (9-20); Calcium 9.1 mg/dL (8.4-10.2); Hemolysis Index 5
[2022-06-17 21:49] LABS: Color,Urine Straw (Yellow)
[2022-06-17 21:58] LABS: Amphetamine Screen,Urine PRESUMPTIVE NEGATIVE; Benzodiazepines Screen,Urine PRESUMPTIVE NEGATIVE; Cannabinoid Screen,Urine PRESUMPTIVE POSITIVE; Cocaine Screen,Urine PRESUMPTIVE NEGATIVE; Methadone Screen,Urine PRESUMPTIVE NEGATIVE; Opiate Screen,Urine PRESUMPTIVE NEGATIVE
--- NOTE | 2022-06-18 07:25 | Emergency Department Report ---
ED Psych HPI - General Chief Complaint: Psych Stated Complaint: HEARING VOICES Time Seen by Provider: 06/18/22 07:23 Source: patient Mode of arrival: Ambulatory - History of Present Illness Initial Comments: Patient is a 21-year-old male presenting to ED with delusions, auditory, visual and tactile hallucinations. - Related Data Previous Rx's Medication Instructions Recorded Last Taken Type Divalproex Dr [DepaKOTE DR] 125 mg PO BID #60 tablet 05/24/22 Unknown Rx OLANZapine [Zyprexa] 15 mg PO DAILY #30 05/24/22 Unknown Rx Trazodone HCl 50 mg PO QHS #30 05/24/22 Unknown Rx Allergies Allergy/AdvReac Type Severity Reaction Status Date / Time No Known Allergies Allergy Verified 05/21/22 12:06 ED Review of Systems ROS: Stated complaint: HEARING VOICES Other details as noted in HPI Respiratory: denies: cough, shortness of breath, wheezing Cardiovascular: denies: chest pain, palpitations Gastrointestinal: denies: abdominal pain, nausea, diarrhea Musculoskeletal: denies: back pain, joint swelling, arthralgia Skin: denies: rash, lesions Neurological: denies: headache, weakness, paresthesias Psychiatric: denies: anxiety, depression ED Past Medical Hx - Past Medical History Previous Medical History?: Yes Hx Psychiatric Treatment: Yes (BIPOLAR SCHIZOPHRENIC) - Surgical History Past Surgical History?: No - Social History Smoking Status: Unknown if ever smoked - Medications Home Medications: Home Medications Medication Instructions Recorded Confirmed Last Taken Type Divalproex Dr [DepaKOTE DR] 125 mg PO BID #60 tablet 05/24/22 Unknown Rx OLANZapine [Zyprexa] 15 mg PO DAILY #30 05/24/22 Unknown Rx Trazodone HCl 50 mg PO QHS #30 05/24/22 Unknown Rx ED Physical Exam - General Limitations: No Limitations General appearance: alert, in no apparent distress - Head Head exam: Present: atraumatic, normocephalic - Respiratory Respiratory exam: Present: normal lung sounds bilaterally. Absent: respiratory distress - Cardiovascular Cardiovascular Exam: Present: regular rate, normal rhythm, normal heart sounds - GI/Abdominal GI/Abdominal exam: Present: soft. Absent: distended, tenderness - Rectal Rectal exam: Present: deferred - Neurological Exam Neurological exam: Present: alert - Psychiatric Psychiatric exam: Present: manic - Skin Skin exam: Present: warm, dry, intact, normal color ED Course Vital Signs 06/17/22 06/18/22 06/18/22 20:34 00:53 07:39 Temperature 98.8 F 98.5 F Pulse Rate 51 L 48 L Respiratory 18 18 Rate Blood Pressure 132/80 118/65 Blood Pressure [Left] O2 Sat by Pulse 100 99 100 Oximetry 06/18/22 12:44 Temperature 98.4 F Pulse Rate 58 L Respiratory 16 Rate Blood Pressure Blood Pressure 120/62 [Left] O2 Sat by Pulse 100 Oximetry ED Medical Decision Making - Lab Data Result diagrams: 06/17/22 21:00 06/17/22 21:00 Critical care attestation.: If time is entered above; I have spent that time in minutes in the direct care of this critically ill patient, excluding procedure time. ED Disposition Clinical Impression: Schizophrenia Disposition: 01 HOME / SELF CARE / HOMELESS Is pt being admited?: No Condition: Stable Instructions: Schizophrenia Additional Instructions: OUTPATIENT MENTAL HEALTH RESOURCES [facility], [facility] Dany Carrillo MD: [address] [place] [address], [address] [place] [address] [place] [address] [facility]: [facility] [facility] [address] [place] [address] [place] [address] [phone] [facility] ([place], [place]) [facility]: [facility]: [address] [place] [address] [address] [place] [address] [place] [address] [facility] [address] [facility]: Ritesh Lebron MD: [id number] [facility] [address] [facility] [id number] [facility]: [address] [place], [place] [id number] [phone] [place] CRISIS AND ACCESS LINE: Professional and Agency Contacts To help Resolve Crises (02/05) [place] Crisis Line: Suicide Prevention Line: Crisis Text Line: Text START to 129284 Emergency: 911 Outpatient COMMUNITY Behavioral Health Resources: DEKALB: [facility] [address] [place], [place] [address] PAX: [facility][1] [address] [place] [address] Tuesday thru Tuesday - 8am - 5pm Call to schedule an assessment for mental health and substance abuse osito torres SEO: [facility] Address: [address] [place], [place] [address]Tuesday thru Tuesday- 7am-2pm [facility] Address: [address] [place] [address] Tuesday thru Tuesday: 8:30AM-5PM Referrals: [facility] [Provider Group] - 3-5 Days ISACC BERKOWITZ MD [Primary Care Provider] - 3-5 Days
--- NOTE | 2022-06-18 11:24 | Progress Note ---
Subjective - Reason for Consult Consult date: 06/18/22 Reason for consult: delusions, hallucinations - Chief Complaint Chief complaint: The patient was seen today. He was just seen and treated about a fewweeks ago. He says he was told to come back to the hospital by the lady he was living with. He says he can no longer go back there. The patient says he thinking about black magic and magic swords. He denies them being threatening in nature. He endorses feeling depressed. He denies SI/HI. REVIEW OF SYSTEMS Constitutional: Negative for weight loss ENT: Negative for stridor Respiratory: Negative for cough or hemoptysis All other systems reviewed and are negative MENTAL STATUS EXAMINATION General Appearance and Behavior: Age appropriate, good hygiene, wearing appropriate clothes. calm, cooperative Cooperation: Cooperative Psychomotor Behavior: Psychomotor normal Mood: depressed Affect and affective range: congruent with stated mood Thought Process: goal directed Thought Content: None Speech: Normal tone and pace Suicidal Ideation: Denies Homicidal Ideation: Denies Hallucinations: Denies Delusions: Yes Impulse Control: Limited Insight and Judgment: Limited insight and judgment Memory: Limited Attention: attentive Orientation: a/o Assessment and Plan Hx of Schizophrenia Treatment Plan Continue meds previously prescribed. The patient should also get next dose of Haldol Dec soon Risks, benefits and alternatives of medications discussed with the patient, questions answered and consent obtained from patient. PSYCHOTHERAPY: Supportive psychotherapy provided MEDICAL: Per primary team DELIRIUM PRECAUTIONS: Please re-orient patient frequently, keep lights on during the day, and minimize benzodiazepines and opiates as these medications could worsen patient's confusion. SENIOR ERP CONSULTANT: Defer to primary DISPOSITION: Do not recommend acute inpatient psychiatric hospitalization at this time. The patient can be treated on an outpatient basis The barge master to give the patient all necessary outpatient resources Will sign off. Thank you for the consult. Please contact with any questions and/or concerns. Case staffed with Dr. Rosenthal Mental Status Exam - Vital signs Last Vital Signs Temp 98.5 F 06/18/22 00:53 Pulse 48 L 06/18/22 00:53 Resp 18 06/18/22 00:53 BP 118/65 06/18/22 00:53 Pulse Ox 99 06/18/22 00:53
[2022-06-18 12:45] VITALS: BP 120/62
--- NOTE | 2022-06-18 16:38 | Emergency Department Report ---
Blank Doc - Documentation Documentation: Patient has been cleared for discharge by mental health. He does not meet 1013 criteria.
== END 2022-06-18 17:29 | disposition home or self-care (01) ==
LOC: ED 19:12
DX: R44.0 Auditory hallucinations (principal); R44.1 Visual hallucinations
CPT/HCPCS: 36415; 80048; 80307; 80320; 81001; 85025; 99283; 99284; G0480